=== PATIENT | male | born 1970 | race Caucasian/White ===

== ENCOUNTER 2022-04-06 12:01 | Emergency (ER) | payer OTHER, SELFPAY ==
[2022-04-06 12:12] VITALS: BP 146/88; PULSE 91; RESP 20; TEMP 36.8; O2SAT 96
--- NOTE | 2022-04-06 12:14 | ED.SOB ---
HPI - SOB/Dyspnea General Chief Complaint: Shortness of Breath/Dyspnea Stated Complaint: shortness of breath Time Seen by Provider: 04/06/22 12:18 Source: patient, family () and RN notes reviewed Mode of arrival: ambulatory Limitations: no limitations History of Present Illness HPI Narrative: 51-year-old male presents to the [facility] reporting that between 930 and 10:00 while giving a speech he was not able to speak, was having chest pressure and describes it as something sitting on his chest. Patient also reports that he was short of breath and became very sweaty. States his symptoms lasted between 10 and 15 minutes. Patient reports it occurred, sudden onset. when at the event he wanted to call EMS, patient declined EMS and drove himself home. drove him to the [facility]. states that she is very concerned for a stroke or cardiac issue. Patient states that he does take Wellbutrin for smoking sensation, testosterone and Ativan for anxiety/sleep. Patient denies any history of hypertension or cardiac issues himself. Denies any cardiac issues in mother father brother sister. Reports that a grandfather had cardiac issues Patient has no neurodeficits time. Talking in full sentences. Patient states that he is still feeling foggy. Related Data Home Medications Medication Instructions Recorded Confirmed bupropion HCl 150 mg 24 hr tablet, mg PO 04/06/22 extended release lorazepam 0.5 mg tablet mg 04/06/22 testosterone 04/06/22 Allergies Allergy/AdvReac Type Severity Reaction Status Date / Time No Known Allergies Allergy Verified 04/06/22 12:08 Review of Systems Review of Systems: All systems reviewed & are unremarkable except as noted in HPI and below Constitutional: Constitutional: Reports no additional constitutional complaints, Denies chills and Denies fever(s) Eyes: Eyes: Reports no additional eye complaints ENT: Reports system reviewed and no additional complaints, except as documented Cardiovascular: Cardiovascular: Reports as per HPI Respiratory: Respiratory: Reports no additional respiratory complaints Gastrointestinal: Gastrointestinal: Reports no additional gastrointestinal complaints Musculoskeletal: Musculoskeletal: Reports no additional musculoskeletal complaints Integumentary/Breasts: Skin/Breast: Reports system reviewed and no additional complaints, except as docu Neurologic: Reports as per HPI, Reports confusion and Reports weakness Psychiatric: Psychiatric: Reports no additional psychiatric complaints Allergic/Immunologic: Allergic/Immunologic: Reports no additional allergic/immunologic complaints PMFSH Past Medical History Medical History (Updated 04/06/22 @ 12:50 by Ana aPula Romero APRN) Low testosterone Social History Social History (Updated 04/06/22 @ 12:41 by Ana Paula Romero APRN) Smoking status: Former smoker Living arrangements: with family Gender identity (if verbalized by the patient): Male Comments At the time of my signature, I reviewed and agree with the nursing past medical, surgical, social, and family history. There is no relevant family history pertinent to the patient complaint. Exam Const: General: healthy appearing, no acute distress and alert Nutritional Appearance: well nourished and obese Orientation/consciousness: patient oriented x3 Limitations: no limitations HENMT: Head: normal to inspection Ears: external ears normal General nose exam: Normal external nose present Face and sinus: normal facial exam Mouth: Yes Normal oral and palatal mucosa present Eyes: General: appearance normal, both eyes and all related structures Conjunctivae: conjunctivae normal Pupils: Equal, round and reactive pupils present Neck: Neck: normal visual inspection, no lymphadenopathy and no meningeal signs Chest: Chest palpation & inspection: normal inspection of the chest Resp: Effort & Inspection: normal respiratory effort and no use of acce
--- NOTE | 2022-04-06 12:22 | ECG_ITS ---
Rate MO QRSd QT QTc P QRS T 90 164 105 336 412 37 -11 5 SINUS RHYTHM INFERIOR INFARCT, AGE INDETERMINATE ABNORMAL ECG NO PREVIOUS ECG AVAILABLE FOR COMPARISON Electronically Signed On 04-09-2022 21:16:38 CDT by Ned BARRAGAN
== END 2022-04-06 12:26 | disposition short-term general hospital (02) ==
PROVIDERS: Emergency Provider Nurse Practitioner; PCP Family Medicine
DX: R07.89 Other chest pain (principal); R06.00 Dyspnea, unspecified; Z87.891 Personal history of nicotine dependence
CPT/HCPCS: 93005; 99213; G0463

== ENCOUNTER 2022-04-06 12:40 | Emergency (ER) | payer OTHER, SELFPAY ==
--- NOTE | ~2022-04-06 | CT_ITS ---
EXAMINATION: CT brain wo con DATE: 04/06/2022 13:01 INDICATION: Cerebral vascular accident. Dysphasia. TECHNIQUE: Computed tomography (CT) of the head was performed without intravenous contrast. The mA wa s adjusted according to patient size. Iterative reconstruction technique was employed. The dose-lengt h product was 681.00 mGy-cm. COMPARISON: None FINDINGS: There is no intracranial hemorrhage, acute infarction, or abnormal intracranial mass lesion . The ventricles are normal in size. The orbits are normal. There is mild mucosal thickening in the ethmoid sinuses. The mastoid air cells are normal. IMPRESSION: 1. Normal brain. I called this result to Dr. Abernathy. Reviewed, dictated and finalized at location A.
--- NOTE | ~2022-04-06 | XR_ITS ---
EXAMINATION: XR chest 1V portable DATE: 04/06/2022 13:19 INDICATION: Left chest pain. TECHNIQUE: A single frontal view of the chest was obtained. COMPARISON: None. FINDINGS: There is mild atelectasis at the lung bases. The right lateral costophrenic angle is exclud ed. No pleural effusion or pneumothorax. The heart size is normal. IMPRESSION: 1. Mild atelectasis at the lung bases. Reviewed, dictated and finalized at location A.
[2022-04-06 12:50] VITALS: BP 149/99; PULSE 89; RESP 16; TEMP 36.9; O2SAT 97
--- NOTE | 2022-04-06 12:54 | ECG_ITS ---
Measurements Intervals [place] Rate: 79 P: 47 AK: 164 QRS: -4 QRSD: 104 T: -2 QT: 338 QTc: 389 Interpretive Statements SINUS RHYTHM INFERIOR INFARCT, AGE INDETERMINATE ABNORMAL ECG NO PREVIOUS ECG AVAILABLE FOR COMPARISON Electronically Signed On 04-06-2022 13:20:54 CDT by Ned BARRAGAN
[2022-04-06 13:08] VITALS: BP 140/99; PULSE 82; RESP 19; O2SAT 97
[2022-04-06 13:16] LABS: Glucose Point of Care 98 mg/dl (65-105)
[2022-04-06 13:18] LABS: Basophils Absolute Auto 0.1 K/mm3 (0.0-0.1); Basophils Percent Auto 0.6 % (0.2-1.2); Eosinophils Percent Auto 0.2 % (0-4.4); Hematocrit 54.6 % (42.0-52.0); Hemoglobin 17.8 g/dL (14.0-18.0); Immature Granulocyte Absolute 0.03 K/mm3 (0.00-0.031); Immature Granulocyte Percent A 0.3 % (0-0.5); Lymphocytes Absolute Auto 1.41 K/mm3 (0.9-3.2); Mean Corpuscular HGB Conc 32.6 g/dl (32-36); Mean Corpuscular Hemoglobin 28.1 pg (26-34); Mean Corpuscular Volume 86.3 fl (80-100); Mean Platelet Volume 10.4 fl (7.4-10.4); Monocytes Absolute Auto 0.9 K/mm3 (0.1-0.6); Monocytes Percent Auto 8.7 % (2.6-8.5); Neutrophils Absolute Auto 7.7 K/mm3 (1.3-6.7); Neutrophils Percent Auto 76.2 % (45.5-73.1); Platelet Count Result 239 k/mm3 (150-375); Red Blood Count 6.33 M/mm3 (4.6-6.20); Red Cell Distribution Width 14.1 % (11.5-14.5); White Blood Count 10.1 K/mm3 (4.5-10.0)
--- NOTE | 2022-04-06 13:22 | ED.NEUROSD ---
HPI - Neuro Symptoms/Deficit General Chief Complaint: Neuro Symptoms/Deficit Stated Complaint: SOB,CP Time Seen by Provider: 04/06/22 13:22 Source: patient and family Mode of arrival: ambulatory Limitations: no limitations History of Present Illness HPI Narrative: Patient is a 51-year-old previously healthy male presenting to the emergency department for evaluation of episodic chest pressure with associated difficulty with speech that occurred approximately 3 hours prior to arrival. Patient states that he was giving a short speech at his place of work today when he began to experience some chest pressure and subsequent word finding difficulty. Patient stated that this lasted a few minutes but was able to complete full sentences with some difficulty. He denied any significant aphasia. Denied any focal weakness or numbness. Patient states that after the episode and ended he was diaphoretic and felt lightheaded and this lightheadedness continues. He denies headache, vision changes, neck pain, current chest pain, shortness of breath. He denied syncopal event. He denies recent illness or injury. Related Data Home Medications Medication Instructions Recorded Confirmed bupropion HCl 150 mg 24 hr tablet, mg PO 04/06/22 extended release lorazepam 0.5 mg tablet mg 04/06/22 testosterone 04/06/22 Allergies Allergy/AdvReac Type Severity Reaction Status Date / Time No Known Allergies Allergy Verified 04/06/22 12:08 Review of Systems Review of Systems: GENERAL: Awake, alert, conversant HEAD: Normocephalic, atraumatic. EYES: PERRLA and EOMI. ENT: Nares clear, no rhinorrhea or epistaxis. Mucous membranes moist. NECK: Supple. CHEST: No respiratory distress, breathing even and non labored HEART: Regular rate, sinus rhythm ABDOMEN:Non distended, non tender EXTREMITIES: Normal range of motion. No edema. SKIN: Warm, dry, no rash. NEURO:No focal deficits. Alert and oriented x3 [facility] Past Medical History Medical History (Updated 04/06/22 @ 16:44 by Camryn Abernathy MD) Low testosterone Social History Social History (Updated 04/06/22 @ 12:41 by Ana Paula Romero APRN) Smoking status: Former smoker Living arrangements: with family Gender identity (if verbalized by the patient): Male Course Vital Signs Vital signs: Vital Signs Temperature 36.9 C 04/06/22 12:50 Pulse Rate 89 04/06/22 12:50 Respiratory Rate 16 04/06/22 12:50 Blood Pressure 149/99 H 04/06/22 12:50 Pulse Oximetry 97 04/06/22 12:50 Oxygen Delivery Room Air 04/06/22 12:50 Temperature 36.9 C 04/06/22 12:50 Pulse Rate 87 04/06/22 16:59 Respiratory Rate 18 04/06/22 16:59 Blood Pressure 138/79 04/06/22 16:59 Pulse Oximetry 99 04/06/22 16:59 Oxygen Delivery Room Air 04/06/22 12:50 MDM - Neuro Symptoms/Deficit MDM Narrative Medical decision making narrative: Patient presented for evaluation of episodic event where he had difficulty with word finding, and had experienced chest pressure. Patient EKG without acute ischemic changes. At the time of assessment, NIH stroke scale score is 0, neurological exam is reassuring. Laboratory results are reassuring. Initial troponin is undetected. Patient was offered admission for evaluation by neurology and cardiology which the patient declined. Patient states he would like to be discharged home. Did explain to the patient the importance of waiting for second troponin, specialty consultation to ensure that he had good follow-up based on his symptoms. Patient second troponin is also undetected. CT head is negative. I spoke with the neurologist who agreed with work-up and recommended outpatient follow-up with the patient declined admission. Patient had a Holter monitor placed, will also be given cardiology referral. This may have been TIA but patient does not have other significant risk factors for this. Given no lasting symptoms, patient has capacity to choose outpa
[2022-04-06 13:27] LABS: Alanine Aminotransferase 43 U/L (6-50); Albumin Level 4.5 g/dL (3.5-5.1); Alkaline Phosphatase 30 U/L (38-126); Anion Gap 12 mmol/L (8-16); Aspartate Amino Transferase 36 U/L (17-59); Bilirubin,Total 0.6 mg/dL (0.2-1.3); Blood Urea Nitrogen 9 mg/dL (9-20); Calcium 9.2 mg/dL (8.4-10.2); Carbon Dioxide 23 mmol/L (22-30); Chloride 104 mmol/L (98-107); Estimated CRCL calculation 107 ml/min; Estimated Glomerular Filt Rate > 60; Glucose 97 mg/dL (65-110); Sodium 139 mmol/L (137-145)
[2022-04-06 13:28] LABS: INR 1.1; Partial Thromboplastin Time 26.6 SECONDS (22.3-36.8); Prothrombin Time 13.4 Seconds (11.1-14.7)
[2022-04-06 13:38] LABS: Troponin I < 0.012 ng/mL (0.000-0.034)
[2022-04-06 16:39] LABS: Troponin I < 0.012 ng/mL (0.000-0.034)
[2022-04-06 16:59] VITALS: BP 138/79; PULSE 87; RESP 18; O2SAT 99
--- NOTE | 2022-04-13 15:16 | WPDHOLTEREM ---
Holter/Event Monitor Holter/Event Monitor Date of procedure: 04/13/22 Holter/Event Procedure: 48 Hr Holter Monitor Diagnosis: SOB and Chest Pain Indications: Shortness of breath and chest pain Image/Tracing Quality: The patient was monitored for 48 hours. The underlying rhythm was sinus with an average heart rate of 84 beats per minute (range 45-146 ppm). Low frequency of PVCs were seen, 2700/48 hours, with a PVC burden of 1.1%. There was brief ventricular bigeminy and trigeminy There were 4 couplets and 3 ventricular triplets. APCs were seen. There was no atrial fibrillation, SVT, ventricular tachycardia, pauses or heart block. No diary was submitted. Findin. Occasional PVCs, with rare ventricular couplets and triplets 2. No diary submitted to correlate for any symptoms.
== END 2022-04-06 17:00 | disposition home or self-care (01) ==
PROVIDERS: Emergency Provider Emergency Medicine; PCP Family Medicine
DX: R47.9 Unspecified speech disturbances (principal); R07.89 Other chest pain; E29.1 Testicular hypofunction; Z87.891 Personal history of nicotine dependence
CPT/HCPCS: 36415; 70450; 71045; 80053; 82948; 84484; 85025; 85610; 85730; 93005; 93225; 93226; 99284

== ENCOUNTER 2022-08-16 19:33 | Emergency (ER) | payer OTHER, SELFPAY ==
[2022-08-16 19:42] VITALS: BP 144/99; PULSE 93; RESP 16; TEMP 36.4; O2SAT 100
--- NOTE | 2022-08-16 19:51 | ED.EXTPRO ---
HPI - Extremity Problem General Chief complaint: Extremity Problem,Nontraumatic Stated complaint: blood clot Time Seen by Provider: 08/16/22 19:52 Source: patient, RN notes reviewed and old records reviewed Mode of arrival: ambulatory Limitations: no limitations History of Present Illness HPI Narrative: 52 year old male accompanied by his with complaints of pain to 2 spots on his right lower leg which are reddened and are tender to palpation. Patient back no swelling or pain to the calf region of his right leg negative Margot;s sign noted, strong pedal pulse present. Patient states that right leg does ache if he stands on it too long. Patient states that they have been using some neosporin ointment on two area of tenderness with redness though might be a bite of some kind. MD Complaint: extremity pain (right lower) Onset (ago): day(s) (2) Severity scale (1-10): 4 Related Data Home Medications Medication Instructions Recorded Confirmed bupropion HCl 150 mg 24 hr tablet, mg PO 04/06/22 extended release lorazepam 0.5 mg tablet mg 04/06/22 testosterone 04/06/22 Allergies Allergy/AdvReac Type Severity Reaction Status Date / Time No Known Allergies Allergy Verified 04/06/22 12:08 Review of Systems Review of Systems: CONSTITUTIONAL: Denies fever, chills, or sweats. EYES: Denies visual changes, redness, or discharge. ENT: Denies rhinorrhea, congestion, sore throat, or otalgia. CARDIOVASCULAR: Denies chest pain, palpitations, or edema. RESPIRATORY: Denies cough or dyspnea. GASTROINTESTINAL: Denies abdominal pain, nausea, vomiting, or diarrhea. GENITOURINARY: Denies dysuria or hematuria. SKIN: Denies rash or itching. MUSCULOSKELETAL: Denies back pain, joint pain, or myalgia positive for right lower leg pain 2 areas of redness with tenderness on palpation anterior lower right leg . NEUROLOGIC: Denies headache, numbness, or weakness. PSYCHIATRIC: Positive for anxiety or depression. All systems reviewed & are unremarkable except as noted in HPI and below PMFSH Past Medical History Medical History (Updated 08/18/22 @ 19:53 by Camryn Gutierrez NP) Anxiety Depression Low testosterone Social History Social History (Updated 04/06/22 @ 12:41 by Ana Paula A. Topper, COMM[employer] WORK[employer]) Smoking status: Former smoker Living arrangements: with family Gender identity (if verbalized by the patient): Male Comments At time of signature, agree with nursing past medical, surgical, social and family history. There is no relevant family history pertinent to the presenting complaint Exam Narrative: GENERAL: Well-appearing, well-nourished, and in no acute distress. HEAD: Normocephalic, atraumatic. EYES: PERRLA and EOMI. ENT: Nares clear, no rhinorrhea or epistaxis. Mucous membranes moist.TM's normal with good light reflex, throat pink with no lesions or exudates NECK: Supple. no lymphadenopathy CHEST: Clear to auscultation. No respiratory distress. SAO2 100% on room air HEART: Regular rate and rhythm. No murmur heard. Normal peripheral pulses. ABDOMEN: Soft, nontender, nondistended, normal active bowel sounds. EXTREMITIES: Normal range of motion. No edema. 2 areas of redness to anterior aspect of right lower leg tender to palpation, no calf tenderness, negative Margot's sign strong pedal pulses SKIN: Warm, dry, no rash. NEURO: No focal deficits. Alert and oriented x3. Course Course Emergency Course: Patient is aware of diagnosis, understands and agrees to treatment plan.? Anticipatory guidance given.? Patient agrees to follow-up as directed and is aware of reasons to seek care at the emergency department. Portions of this record may have been created with voice recognition software Level of Care: Express Care Visit Vital Signs Vital signs: Vital Signs Temperature 36.4 C 08/16/22 19:42 Pulse Rate 93 08/16/22 19:42 Respiratory Rate 16 08/16/22 19:42 Blood Pressure 144/99 H 08/16/22 19:42 Pulse Oximetry 100 08/16/22 19:42
== END 2022-08-16 20:09 | disposition home or self-care (01) ==
PROVIDERS: Emergency Provider Registered Nurse; PCP Family Medicine
DX: M79.661 Pain in right lower leg (principal); F41.9 Anxiety disorder, unspecified; F32.A Depression, unspecified; Z87.891 Personal history of nicotine dependence
CPT/HCPCS: 99213; G0463